=== PATIENT | female | born 1955 | race Caucasian/White ===

== ENCOUNTER 2022-05-02 13:13 | Outpatient (CLI) | payer BC ==
--- NOTE | 2022-05-02 19:42 | XRAY Report ---
PROCEDURE: Shoulder 3 View LT INDICATIONS: PAIN IN LEFT SHOULDER TECHNIQUE: 3 views of the shoulder were acquired. COMPARISON: None. FINDINGS: Bones: No fractures or dislocations. Mild to moderate acromioclavicular joint and glenohumeral joint osteoarthritic changes are seen with joint space narrowing, subchondral sclerosis and marginal osteo phyte formation. No suspicious bony lesions. Visualized ribs appear intact. Soft tissues: No suspicious soft tissue calcifications. 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 No acute fracture or dislocation. No gross soft tissue abnormalities. Reviewed by: Jimenez Bar MD on 05/02/2022 7:41 PM PST Approved by: Jimenez Bar MD on 05/02/2022 7:41 PM PST Station ID: [id number]
== END 2022-05-02 13:14 | disposition home or self-care (01) ==
LOC: DI 13:13
PROVIDERS: ATTEND Registered Nurse
DX: M19.012 Primary osteoarthritis, left shoulder (principal)

== ENCOUNTER 2022-05-26 12:40 | Outpatient (CLI) | payer BC ==
--- NOTE | 2022-05-29 10:00 | MRI Report ---
PROCEDURE: SHOULDER WO - LT INDICATIONS: PAIN IN LEFT SHOULDER TECHNIQUE: Noncontrast oblique coronal T2 fast spin echo with fat saturation, oblique sagittal T1 spin echo and T2 fast spin echo with fat saturation, axial T1 spin echo and T2 fast spin echo with fat saturation t hrough the shoulder. COMPARISON: X-ray left shoulder. FINDINGS: Image quality: Excellent. Rotator cuff: There is partial-thickness tear of the distal supraspinatus tendon involving both artic ular and bursal surfaces. Infraspinatus and subscapularis tendons appear intact with mild tendinosis. No rotator cuff muscle atrophy on sagittal images. Bones and bursae: There is a comminuted fracture of the humeral head involving the greater tuberosity with prominent marrow edema and mild displacement. Mild acromioclavicular and moderate glenohumeral joint degeneration. The acromion demonstrates conventional anatomy, without an os acromiale. Small s ubacromial/subdeltoid bursal fluid is present, suggesting mild bursitis. Capsule and soft tissues: In the absence of intra-articular contrast, the labrum and glenohumeral li gaments appear intact with mild tendinosis. The long head of the biceps tendon demonstrates normal l ocation and morphology. The rotator interval appears normal, without fibrosis. The coracohumeral li gament is normal in thickness. IMPRESSION: 1. Comminuted humeral head fracture involving the greater tuberosity with mild displacement. 2. Partial-thickness tear of the supraspinatus tendon. No tendon retraction or supraspinous muscle at rophy. 3. Mild acromioclavicular and moderate glenohumeral joint degeneration. 4. Mild subacromial/subdeltoid bursitis. Reviewed by: Ronda Alcala MD on 05/29/2022 8:59 AM TIFFANIE Approved by: Ronda Alcala MD on 05/29/2022 8:59 AM AKDT Station ID: [id number]
== END 2022-05-26 12:41 | disposition home or self-care (01) ==
LOC: DI 12:40
PROVIDERS: ATTEND Registered Nurse
DX: S42.252A Displaced fracture of greater tuberosity of left humerus, initial encounter for closed fracture (principal); M19.012 Primary osteoarthritis, left shoulder; M75.112 Incomplete rotator cuff tear or rupture of left shoulder, not specified as traumatic; M75.52 Bursitis of left shoulder